=== PATIENT | female | born 1960 | race Hispanic/Latino ===

== ENCOUNTER 2020-08-15 10:29 | Outpatient (CLI) | payer OTHER, SELFPAY ==
--- NOTE | ~2020-08-15 | CT_ITS ---
EXAMINATION: CT lung screening DATE: 08/15/2020 10:50 INDICATION: Personal history of nicotine dependence. TECHNIQUE: Computed tomography (CT) of the chest was performed without intravenous contrast. The dose -length product was 193.73 mGy-cm. Automated exposure control and iterative reconstruction technique were employed. COMPARISON: None FINDINGS: Heart size normal. No significant pleural or pericardial effusion. No thoracic lymphadenopa thy. The upper abdomen is unremarkable. There is mild emphysema. No endobronchial lesions. There is l ingular atelectasis. There are tiny 2 mm upper lobe nodules, likely benign. No osteolytic or osteobla stic lesions. IMPRESSION: 1. Lung-RADS category 2: Benign appearance or behavior. Continue annual screening with noncontrast lo w-dose chest CT in 12 months. Reviewed, dictated and finalized at location B. HER'S ASSISTANT IMPRESSION: 1. Lung-RADS category 2: Benign appearance or behavior. Continue annual screeni ng with noncontrast low-dose chest CT in 12 months.
== END 2020-08-15 10:30 | disposition home or self-care (01) ==
LOC: ANHIMG 10:33
PROVIDERS: PCP Physician Assistant; Visit Provider Physician Assistant
DX: Z87.891 Personal history of nicotine dependence (principal)
CPT/HCPCS: G0297

== ENCOUNTER 2021-08-16 07:59 | Day surgery (SDC) | payer OTHER, SELFPAY ==
[2021-08-16] VITALS (13 sets, daily range): BP systolic 122–161; BP diastolic 67–98; PULSE 72–89; RESP 16–30; TEMP 36.4–36.5; O2SAT 95–99
--- NOTE | ~2021-08-16 | CT_ITS ---
EXAMINATION: CT abdomen pelvis w con DATE: 08/16/2021 10:19 INDICATION: Right lower quadrant pain TECHNIQUE: Computed tomography (CT) of the abdomen and pelvis was performed with 100 cc Omnipaque 350 intravenous contrast. The dose-length product was 1149.08 mGy-cm. Automated exposure control and ite rative reconstruction technique were employed. COMPARISON: CT dated 09/25/2014. FINDINGS: Lung bases are unremarkable. Heart size normal. No significant pleural or pericardial effus ion. No significant vascular abnormality. Fatty infiltration of the liver. The spleen, pancreas, adrenal glands and kidneys are unremarkable. T here is a thickened enhancing appendix with surrounding phlegmonous change, compatible with acute derek endicitis. Small amount of free fluid in the pelvis. Nonobstructive bowel gas pattern. No free air. N o acute osseous abnormality. IMPRESSION: 1. Acute uncomplicated appendicitis. Reviewed, dictated and finalized at location A. ORK SECURITY ADMINISTRATOR
[2021-08-16 08:45] LABS: Basophils Absolute Auto 0.1 K/mm3 (0.0-0.1); Basophils Percent Auto 0.5 % (0.2-1.2); Eosinophils Absolute Auto 0.2 K/mm3 (0-0.3); Eosinophils Percent Auto 1.6 % (0-4.4); Hematocrit 39.6 % (37.0-47.0); Hemoglobin 13.3 g/dL (12.0-15.0); Immature Granulocyte Absolute 0.03 K/mm3 (0.00-0.031); Immature Granulocyte Percent A 0.3 % (0-0.5); Lymphocytes Absolute Auto 2.27 K/mm3 (0.9-3.2); Lymphocytes Percent Auto 22.6 % (18.3-44.2); Mean Corpuscular HGB Conc 33.6 g/dl (32-36); Mean Corpuscular Hemoglobin 29.6 pg (26-34); Mean Corpuscular Volume 88.2 fl (80-100); Mean Platelet Volume 10.1 fl (7.4-10.4); Monocytes Absolute Auto 0.5 K/mm3 (0.1-0.6); Monocytes Percent Auto 5.4 % (2.6-8.5); Neutrophils Percent Auto 69.6 % (45.5-73.1); Platelet Count Result 283 k/mm3 (150-375); Red Blood Count 4.49 M/mm3 (4.2-5.4); Red Cell Distribution Width 13.5 % (11.5-14.5)
[2021-08-16 09:00] LABS: Alanine Aminotransferase 23 U/L (4-35); Albumin Level 4.4 g/dL (3.5-5.1); Alkaline Phosphatase 68 U/L (38-126); Anion Gap 10 mmol/L (8-16); Aspartate Amino Transferase 25 U/L (14-36); Bilirubin,Total 0.5 mg/dL (0.2-1.3); Blood Urea Nitrogen 14 mg/dL (7-17); Calcium 8.6 mg/dL (8.4-10.2); Carbon Dioxide 22 mmol/L (22-30); Chloride 103 mmol/L (98-107); Estimated CRCL calculation 95 ml/min; Estimated Glomerular Filt Rate > 60; Glucose 120 mg/dL (65-110); Lipase 46 U/L (23-300); Potassium 4.1 mmol/L (3.4-5.0); Sodium 135 mmol/L (137-145)
[2021-08-16 09:11] LABS: Add Urine Microscopic? YES; Appearance Urine Cloudy (Clear); Bilirubin Urine Negative (Negative); Blood Urine Negative (Negative); Color Urine Yellow (Yellow); Glucose Urine UA Negative (Negative); Ketones Urine Negative (Negative); Leukocyte Esterase Ur Negative LEU/UL (Negative); Mucus Urine Rare /lpf; Nitrate Urine Negative (Negative); Protein Urine Negative (Negative); Squamous Epithelial Cell Urine Many /hpf (Few); Urobilinogen Urine Negative mg/dL (<2.0); WBC Urine 0-3 /hpf
[2021-08-16] MEDS: SODIUM CHLORIDE 0.9% IV 1,000 ML 999 ML IV CONT (10:01)
--- NOTE | 2021-08-16 10:02 | PC.NURSE ---
Pt states she had her fallobian tubes removed
--- NOTE | 2021-08-16 12:04 | ED.ABDPAIN ---
HPI - Abdominal Pain General Chief Complaint: Abdominal Pain Stated Complaint: rlq abd pain Time Seen by Provider: 08/16/21 09:37 Source: patient and RN notes reviewed Mode of arrival: ambulatory Limitations: no limitations History of Present Illness HPI narrative: Patient presents with right lower quadrant pain started last night. Constant, no radiation, associated with nausea. Patient denies any fever, chills, vomiting. Patient is not vaccinated for COVID-19, no history of abdominal surgery. Patient smokes, does not drink or uses drugs, no blood thinner. Last meal was last night at 8 PM Related Data Allergies Allergy/AdvReac Type Severity Reaction Status Date / Time No Known Allergies Allergy Verified 11/17/18 19:30 Review of Systems Review of Systems: CONSTITUTIONAL: Denies fever, chills, or sweats. EYES: Denies visual changes, redness, or discharge. ENT: Denies rhinorrhea, congestion, sore throat, or otalgia. CARDIOVASCULAR: Denies chest pain, palpitations, or edema. RESPIRATORY: Denies cough or dyspnea. GASTROINTESTINAL: Denies abdominal pain, nausea, vomiting, or diarrhea. GENITOURINARY: Denies dysuria or hematuria. SKIN: Denies rash or itching. MUSCULOSKELETAL: Denies back pain, joint pain, or myalgia. NEUROLOGIC: Denies headache, numbness, or weakness. PSYCHIATRIC: Denies anxiety or depression. Exam Narrative: General appearance: Well-developed, well-nourished Skin: Normal color Head: Normocephalic, nontraumatic Eyes: Clear conjunctiva ENT: Oropharynx normal, ears normal, nose normal Neck: Supple, nontender Chest and respiratory: Airway patent, no respiratory distress, no accessory muscle use Heart: Regular rate/rhythm Abdomen: Soft, moderate tenderness right lower quadrant, positive guarding and slight rebound, quiet bowel sounds Vascular: Normal peripheral pulses, normal capillary refill. 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, no gross motor deficit Course Course Emergency Course: Stable Consultations Consultation #1: DR BENSON Date: 08/16/21 Time: 12:17 Vital Signs Vital signs: Vital Signs Temperature 36.5 C 08/16/21 08:07 Pulse Rate 89 08/16/21 08:07 Respiratory Rate 18 08/16/21 08:07 Blood Pressure 122/91 H 08/16/21 08:07 Pulse Oximetry 98 08/16/21 08:07 Temperature 36.5 C 08/16/21 08:07 Pulse Rate 72 08/16/21 10:59 Respiratory Rate 18 08/16/21 10:59 Blood Pressure 133/77 08/16/21 10:59 Pulse Oximetry 99 08/16/21 10:59 MDM - Abdominal Pain MDM Narrative Medical decision making narrative: Patient presents with right lower quadrant pain. Differential diagnosis as below. Labs, CT abdomen pelvis with IV contrast, IV fluid, IV morphine and Zofran ordered Differential Diagnosis Differential diagnosis: Likely abdominal pain, acute appendicitis, calculus of kidney, constipation and diverticulitis Lab Data Result diagrams: 08/16/21 08:34 08/16/21 08:34 Labs: Lab Results 08/16/21 08/16/21 08/16/21 Range/Units 08:34 08:34 08:50 WBC 10.0 (4.5-10.0) K/mm3 RBC 4.49 (4.2-5.4) M/mm3 Hgb 13.3 (12.0-15.0) g/dL Hct 39.6 (37.0-47.0) % MCV 88.2 (80-100) fl MCH 29.6 (26-34) pg MCHC 33.6 (32-36) g/dl RDW 13.5 (11.5-14.5) % Plt Count 283 (150-375) k/mm3 MPV 10.1 (7.4-10.4) fl Immature Gran % (Auto) 0.3 (0-0.5) % Neut % (Auto) 69.6 (45.5-73.1) % Lymph % (Auto) 22.6 (18.3-44.2) % [place] % (Auto) 5.4 (2.6-8.5) % Eos % (Auto) 1.6 (0-4.4) % Baso % (Auto) 0.5 (0.2-1.2) % Lymph # (Auto) 2.27 (0.9-3.2) K/mm3 Mon
[2021-08-16] MEDS: ONDANSETRON INJ 4 MG/2 ML VIAL IV PUSH (12:15)
[2021-08-16] MEDS: MORPHINE SULFATE (*CRX) 4 MG/ML INJ IV PUSH (12:15)
--- NOTE | 2021-08-16 14:01 | WPDANESEPPF ---
Anes - Initial Pre Proc Eval Procedure: Operation Date: 08/16/21 15:30 Proposed Procedures p Laparoscopic Appendectomy - Power Charles MD Date/Time: 08/16/21 14:01 Pre Op Diagnosis: rlq abd pain Patient Data Age: 60 Gender: F Height: 1.63 m Weight: 90.7 kg Last Vital Signs Temp 36.4 C L 08/16/21 13:13 Pulse 83 08/16/21 13:13 Resp 16 08/16/21 13:13 BP 154/91 H 08/16/21 13:13 Pulse Ox 98 08/16/21 13:13 Allergies Allergy/AdvReac Type Severity Reaction Status Date / Time No Known Allergies Allergy Verified 08/16/21 13:38 Home Medications Medication Instructions Recorded Confirmed Type cetirizine 10 mg PO DAILY 08/16/21 08/16/21 History conj estrog-medroxyprogest francia 0.625 - 2.5 tablet PO DAILY 08/16/21 08/16/21 History [Prempro] sertraline 100 mg PO DAILY 08/16/21 08/16/21 History Laboratory Tests 08/16/21 08/16/21 08/16/21 08:34 08:34 08:50 WBC 10.0 K/mm3 K/mm3 (4.5-10.0) RBC 4.49 M/mm3 M/mm3 (4.2-5.4) Hgb 13.3 g/dL g/dL (12.0-15.0) Hct 39.6 % % (37.0-47.0) MCV 88.2 fl fl (80-100) MCH 29.6 pg pg (26-34) MCHC 33.6 g/dl g/dl (32-36) RDW 13.5 % % (11.5-14.5) Plt Count 283 k/mm3 k/mm3 (150-375) MPV 10.1 fl fl (7.4-10.4) Immature Gran % (Auto) 0.3 % % (0-0.5) Neut % (Auto) 69.6 % % (45.5-73.1) Lymph % (Auto) 22.6 % % (18.3-44.2) [place] % (Auto) 5.4 % % (2.6-8.5) Eos % (Auto) 1.6 % % (0-4.4) Baso % (Auto) 0.5 % % (0.2-1.2) Lymph # (Auto) 2.27 K/mm3 K/mm3 (0.9-3.2) [place] # (Auto) 0.5 K/mm3 K/mm3 (0.1-0.6) Eos # (Auto) 0.2 K/mm3 K/mm3 (0-0.3) Baso # (Auto) 0.1 K/mm3 K/mm3 (0.0-0.1) Abs Immat Gran (auto) 0.03 K/mm3 K/mm3 (0.00-0.031) Absolute Neuts (auto) 7.0 K/mm3 H K/mm3 (1.3-6.7) Absolute Nucleated RBC 0.0 K/mm3 K/mm3 (0.0-0.012) Nucleated RBC % 0.0 % % (0.0-0.2) Sodium 135 mmol/L L mmol/L (137-145) Potassium 4.1 mmol/L mmol/L (3.4-5.0) Chloride 103 mmol/L mmol/L (98-107) Carbon Dioxide 22 mmol/L mmol/L (22-30) Anion Gap 10 mmol/L mmol/L (8-16) BUN 14 mg/dL mg/dL (7-17) Creatinine 0.60 mg/dL L mg/dL (0.7-1.0) Estim Creat Clear Calc 95 ml/min ml/min Estimated GFR > 60 (59 - ) Glucose 120 mg/dL H mg/dL (65-110) Calcium 8.6 mg/dL mg/dL (8.4-10.2) Total Bilirubin 0.5 mg/dL mg/dL (0.2-1.3) AST 25 U/L U/L (14-36) ALT 23 U/L U/L (4-35) Alkaline Phosphatase 68 U/L U/L (38-126) Total Protein 7.0 g/dL g/dL (6.3-8.2) Albumin 4.4 g/dL g/dL (3.5-5.1) Lipase 46 U/L U/L (23-300) Urine Color Yellow (Yellow) Urine Appearance Cloudy H (Clear) Urine pH 7.0 (5.0-9.0) Ur Specific [place] 1.020 (1.001-1.035) Urine Protein Negative mg/dL mg/dL (Negative) Urine Glucose (UA) Negative mg/dL mg/dL (Negative) Urine Ketones Negative mg/dL mg/dL (Negative) Ur Blood (Man) Negative (Negative) Urine Nitrate Negative (Negative) Urine Bilirubin Negative (Negative) Urine Urobilinogen Negative mg/dL mg/dL (<2.0) Leukocyte Esterase Rfl Negative AJITH/UL AJITH/UL (Negative) Urine RBC 3-5 /hpf H /hpf (0-2) Urine WBC 0-3 /hpf /hpf Ur Squamous Epith Cells Many /hpf H /hpf (Few) Urine Mucus Rare /lpf /lpf Patient hx anesthesia problems: none Family hx anesthesia problems: none Results Review: All pre-operative results and documents have been reviewed as part of the pre-operative evaluation. PMFSH Past Medical History Medical History (Up
--- NOTE | 2021-08-16 15:44 | WPDHPUPDATE1 ---
History and Physical Update Update Date/Time: 08/16/21 15:44 History and Physical has been reviewed, including an updated exam of the patient. There are NO changes in the patient's condition. Risks, benefits, and alternatives have been discussed and questions answered. Patient agrees to proceed with procedure.
--- NOTE | 2021-08-16 15:44 | PM.SD2 ---
Same Day Admit/Disch: HPI History of Present Illness Chief complaint: Right lower quadrant abdominal pain Narrative: Yadira Grijalva is a 60 year old female who began having abdominal pain last night. Over time this pain which was in the mid abdomen and upper abdomen gradually moved to the right lower quadrant. It became more severe as the night went on. She had no nausea or vomiting. She had no fever. She has not had any diarrhea. The pain was quite severe and she decided to come to the emergency room about 7:00 a.m. this morning. In the emergency room she was noted to have right lower quadrant tenderness with guarding. [place] [id number]. She was afebrile. Her CT however showed early acute appendicitis. Patient is taken to surgery now for laparoscopic appendectomy. She has generally healthy although she does smoke a pack a cigarettes per day. [facility] Past Medical History Medical History WHITING (nonalcoholic steatohepatitis) 3 years ago - resolved Social History Social History Smoking packs per day: 1 Smoking cigarettes per day: 20.0 Years smoked: 40 Smoking pack-years: 40.00 Smoking status: Current every day smoker Same Day Admit/Disch: Med Pre-admit Medications Home Medications Medication Instructions Recorded Confirmed Type Prempro 0.625 - 2.5 tablet PO DAILY 08/16/21 08/16/21 History albuterol sulfate 1 inh INHALATION PRN PRN 08/16/21 08/16/21 History apple cider vinegar 300 mg PO DAILY 08/16/21 08/16/21 History calcium carbonate-vitamin D3 1 tablet PO DAILY 08/16/21 08/16/21 History cetirizine 10 mg PO DAILY 08/16/21 08/16/21 History diclofenac sodium 75 mg PO BID 08/16/21 08/16/21 History gabapentin 300 mg PO TID 08/16/21 08/16/21 History hydrocodone-acetaminophen 1 - 2 tablet PO Q6H PRN #10 tablet 08/16/21 Rx imipramine HCl 25 mg PO BID 08/16/21 08/16/21 History multivitamin with folic acid 1 tablet PO DAILY 08/16/21 08/16/21 History [Tab-A-Awais] sertraline 100 mg PO DAILY 08/16/21 08/16/21 History Exam Const: General: comfortable, no acute distress, alert and awake HENMT: Head: normocephalic and atraumatic Mouth: Yes Normal oral and palatal mucosa present Eyes: Conjunctivae: conjunctivae normal Pupils: Equal, round and reactive pupils present EOM: EOMs intact bilaterally Neck: Neck: normal visual inspection, no lymphadenopathy and nontender Resp: Effort & Inspection: normal respiratory effort Auscultation: clear to auscultation bilaterally Cardio: Rate: regular rate Rhythm: regular rhythm Heart sounds: no gallops, no murmurs and no rubs GI: Inspection: non-distended, obesity and scar (Periumbilical) GI Palp: Yes Soft to palpation, Yes Tenderness to palpation present (GI) (Right lower quadrant mostly), Yes Guarding due to palpation present (GI), No Hepatomegaly present and No Splenomegaly present Skin: Lesions: no lesions Rashes: no rashes Neuro: General: no focal motor deficits and CN's II-XI intact bilaterally Cranial nerves: Yes Equal, round and reactive pupils present, Yes Bilaterally intact EOM present, Yes facial symmetry and Yes Midline tongue present Speech: normal speech Motor exam (neuro): 5/5 motor strength present throughout and Motor abnormalities not present Extrem: General: no clubbing, cyanosis or edema and edema Psych: Affect: normal affect Thought process: Normal thought process present Insight: Good insight present (Psych) DS: Data Data Completed and Pending Labs on day of discharge: Labs from last 24 hours 08/16/21 08/16/21 08/16/21 08:50 08:34 08:34 WBC 10.0 RBC 4.49 Hgb 13.3 Hct 39.6 MCV 88.2 MCH 29.6 MCHC 33.6 RDW 13.5 Plt Count 283 MPV 10.1 Immature Gran % (Auto) 0.3 Neut % (Auto) 69.6 Lymph % (Auto) 22.6 [place] % (Auto) 5.4 Eos % (Auto) 1.6 Baso % (Auto) 0.5 Ly
--- NOTE | 2021-08-16 15:53 | P.OP_ITS ---
Procedure Note - Detailed Date of Procedure 08/16/21 Pre-op Diagnosis Acute appendicitis Post-op Diagnosis same Procedure Performed Laparoscopic appendectomy Surgeon Power Charles MD International Sales Manager Saad AWAN Anesthesia general and local (0.5% [place]aine) Indications Patient is a 60-year-old woman with mid abdominal pain that moved to the right lower quadrant. She has rebound guarding and CT suggests early acute appendicitis. She is taken to surgery now for laparoscopic appendectomy Findings Acute non perforated appendicitis Description of Procedure Patient was taken to surgery and induced into general anesthesia. The abdomen is prepped and draped. Trocars were placed in usual fashion using 0.5% [place]aine as well as applied Medical optical trocars. A 5 mm camera was used. The patient was placed in Trendelenburg with the right-side elevated. The appendix was found after some dissection. It was dissected free from inflammatory adhesions and then elevated anteriorly. Dissection was then carried out in the mesoappendix. The appendiceal artery was thoroughly cauterized and divided. We skeletonized the appendix at its base. The appendix was then ligated at its base with a Vicryl endoloop. We amputated the appendix just above the ligature. The mucosa of the appendiceal stump was cauterized. The appendix was placed immediately in an Endo-Catch bag retrieved through the 10 11 left lower quadrant trocar site. We replaced the left lower quadrant trocar then reviewed the areas of dissection and the appendiceal stump. We suctioned away any blood or other debris. All looked quite good. We evacuated CO2 and removed the trocar sleeves. Skin wounds were closed with subcuticular running 4-0 Monocryl skin suture. The wounds were dressed with Exofin surgical adhesive. Patient was awakened and taken to recovery in good condition. Sponge and needle counts were correct x2. Estimated Blood Loss -5 Drains No Packing No Pathology yes (Appendix) Complications No immediate complications Condition stable Disposition PACU
[2021-08-16] MEDS: BUPIVACAINE HCL 0.5% PF 30 ML VIAL INFILTRATE (16:16)
[2021-08-16] MEDS: LACTATED RINGERS 1,000 ML 30 ML IV CONT (16:32)
[2021-08-16] MEDS: fentaNYL CITRATE INJ (*CRX) 100 MCG/2 ML VIAL 25 MCG IV PUSH ×6 (16:53→17:19)
[2021-08-16] MEDS: oxyCODONE HCL (*CRX) 5 MG TAB IR PO (17:56)
== END 2021-08-16 18:34 | disposition home or self-care (01) ==
LOC: ANHED 12:47 → ANHSURGERY 14:12
PROVIDERS: Emergency Provider Emergency Medicine; PCP Physician Assistant; Visit Provider Surgery
PROC: 0DTJ4ZZ Resection of Appendix, Percutaneous Endoscopic Approach (ICD-10-PCS; CPT 44970; principal; 2021-08-16 15:30)
DX: K35.30 Acute appendicitis with localized peritonitis, without perforation or gangrene (principal); K38.2 Diverticulum of appendix; F17.210 Nicotine dependence, cigarettes, uncomplicated; E66.9 Obesity, unspecified; Z68.34 Body mass index [BMI] 34.0-34.9, adult
CPT/HCPCS: 44970; 36415; 74177; 80053; 81001; 83690; 85025; 88304; 96361; 96365; 96375; 99285; A9270; J0330; J1100; J2270; J2405; J2543; J2704; J3010; J7030; J7120; Q9967

== ENCOUNTER 2023-05-26 09:34 | Outpatient (CLI) | payer OTHER, SELFPAY | END 2023-05-26 09:35 | disposition home or self-care (01) | LOC: ANHAUDIO 09:35 | PROVIDERS: PCP Physician Assistant; Visit Provider Otolaryngology | DX: H90.3 Sensorineural hearing loss, bilateral (principal); H93.19 Tinnitus, unspecified ear | CPT/HCPCS: 92557; 92567 ==

== ENCOUNTER 2024-12-13 11:04 | Emergency (ER) | payer OTHER, SELFPAY ==
--- NOTE | ~2024-12-13 | CT_ITS ---
Clinical Indication: Chest pain, tachycardia CT Scan of the Chest with Contrast: Technique: Contiguous sections were acquired throughout the chest after intravenous administration of 100 cc of Omnipaque 350. Dose reduction technique was used on this scan by utilizing automated expos ure control and iterative reconstruction technique. The dose-length product (DLP) was 504.01 mGy-cm. Findings: There is no evidence of any significant mediastinal, hilar or axillary lymphadenopathy. There is no f illing defect in the pulmonary arterial tree to suggest pulmonary embolus. There is no evidence of ao rtic dissection or aneurysm. There is no evidence of pleural or pericardial effusion. Focal area of consolidation present in the posterior right upper lobe, compatible with pneumonia. The re is additional mild patchy air space opacities in the more inferolateral right upper lobe. Left say g clear aside from focal atelectasis in the medial left upper lobe. Images through the upper abdomen reveal no abnormalities. Impression: No evidence of pulmonary embolus, aortic dissection, or aortic aneurysm. Right upper lobe pneumonia, as detailed above. Reviewed, dictated and finalized at location . Impression: No evidence of pulmonary embolus, aortic dissection, or aortic aneurysm. Right upper lobe pneumonia, as detailed above.
--- NOTE | ~2024-12-13 | XR_ITS ---
Clinical Indication: Chest pain PA and lateral views of the chest: Comparison: 12/06/2011 Findings: The lungs are clear, without evidence of focal consolidation or pleural effusion. Possible COPD. Cardiomediastinal silhouette is within normal limits. Bones and soft tissues are unremarkable. Impression: Clear lungs. Possible COPD. Reviewed, dictated and finalized at location . Impression: Clear lungs. Possible COPD.
[2024-12-13 11:05] VITALS: BP 137/99; PULSE 120; RESP 20; TEMP 36.3; O2SAT 97
[2024-12-13 11:10] VITALS: BP 137/99; PULSE 120; RESP 18; TEMP 36.3; O2SAT 97
--- NOTE | 2024-12-13 11:11 | ECG_ITS ---
Test Date: 2024-12-13 11:15:29 Measurements Intervals [place] Rate: 110 P: 62 AK: 130 QRS: 52 QRSD: 89 T: 54 QT: 302 QTc: 409 Interpretive Statements SINUS TACHYCARDIA MINIMAL Q WAVES- INFERIOR LEADS BORDERLINE ST-T WAVE ABNORMALITY- ANTEROLAT/INF LEADS BASELINE ARTIFACT- V4-V6 ABNORMAL ECG No previous ECG available for comparison Electronically Signed On 12-13-2024 12:29:46 CDT by Mayo Brice D.O.
[2024-12-13 11:44] LABS: Basophils Percent Auto 0.2 % (0.2-1.2); Eosinophils Absolute Auto 0.1 K/mm3 (0-0.3); Eosinophils Percent Auto 0.4 % (0-4.4); Hematocrit 42.9 % (37.0-47.0); Hemoglobin 13.9 g/dL (12.0-15.0); Immature Granulocyte Absolute 0.08 K/mm3 (0.00-0.031); Immature Granulocyte Percent A 0.4 % (0-0.5); Lymphocytes Absolute Auto 1.32 K/mm3 (0.9-3.2); Lymphocytes Percent Auto 7.3 % (18.3-44.2); Mean Corpuscular HGB Conc 32.4 g/dl (32-36); Mean Corpuscular Hemoglobin 28.8 pg (26-34); Mean Corpuscular Volume 88.8 fl (80-100); Mean Platelet Volume 9.9 fl (7.4-10.4); Monocytes Absolute Auto 0.9 K/mm3 (0.1-0.6); Monocytes Percent Auto 4.7 % (2.6-8.5); Neutrophils Absolute Auto 15.6 K/mm3 (1.3-6.7); Platelet Count Result 287 k/mm3 (150-375); Red Blood Count 4.83 M/mm3 (4.2-5.4); Red Cell Distribution Width 15.7 % (11.5-14.5)
--- NOTE | 2024-12-13 11:44 | PC.NURSE ---
attempted to take patients blood pressure multiple times, educating that if the patient sits still the blood pressure cuff won't continue to increase in tightness. patient yelling and ripping the blood pressure cuff off every time stating I am already in pain I can't take that pain, that's going to make me have a heart attack . educated the patient that we need to monitor her blood pressure and will come back after a break for her.
[2024-12-13] MEDS: ASPIRIN 81 MG CHEWABLE TABLET 324 MG PO (11:49)
[2024-12-13 11:53] LABS: Alanine Aminotransferase 25 U/L (6-35); Albumin Level 4.7 g/dL (3.5-5.1); Alkaline Phosphatase 94 U/L (38-126); Anion Gap 13 mmol/L (4-12); Aspartate Amino Transferase 23 U/L (14-36); Bilirubin,Total 0.3 mg/dL (0.2-1.3); Blood Urea Nitrogen 16 mg/dL (7-17); Calcium 9.7 mg/dL (8.4-10.2); Carbon Dioxide 22 mmol/L (22-30); Chloride 103 mmol/L (98-107); Estimated CRCL calculation 74 ml/min; Estimated Glomerular Filt Rate > 60; Glucose 152 mg/dL (65-110); Lipase 76 U/L (23-300); Sodium 138 mmol/L (137-145)
[2024-12-13 11:57] LABS: Partial Thromboplastin Time 27.6 Seconds (22.3-36.8); Prothrombin Time 13.2 Seconds (11.1-14.7)
[2024-12-13 12:05] LABS: Troponin I < 0.012 ng/mL (0.000-0.034)
--- NOTE | 2024-12-13 12:06 | ED_ITS ---
HPI - General Adult General Chief complaint: Chest Pain Stated complaint: chest pain Time Seen by Provider: 12/13/24 11:28 History of Present Illness HPI narrative: 64-year-old female present to the emergency department for evaluation for left- sided chest pain that is sharp and worsened with deep inspiration. Patient states symptoms started this morning. Patient does have a history of COPD does continue to smoke. Patient denies any cardiac history. Patient is unsure if she has ever had a stress test patient denies ever having a Angiocath. Patient denies any prior history of PE or DVT. Patient does have history of hypertension and anxiety Related Data Home Medications ?Medication ?Instructions ?Recorded ?Confirmed ?Last Taken ?Type albuterol sulfate 90 mcg/actuation 1 inh inhalation PRN PRN Shortness 08/16/21 05/25/23 Unknown History aerosol inhaler Of Breath apple cider vinegar 300 mg tablet 300 mg PO DAILY 08/16/21 05/25/23 Unknown History calcium 600 mg (as 1 tablet PO DAILY 08/16/21 05/25/23 Unknown History carbonate)-vitamin D3 10 mcg (400 unit) tablet diclofenac sodium 75 mg 75 mg PO BID 08/16/21 05/25/23 Unknown History tablet,delayed release gabapentin 300 mg tablet 300 mg PO TID 08/16/21 05/25/23 Unknown History imipramine HCl 25 mg tablet 25 mg PO BID 08/16/21 05/25/23 Unknown History multivitamin with folic acid 400 1 tablet PO DAILY 08/16/21 05/25/23 Unknown History mcg tablet (Tab-A-Awais) sertraline 100 mg tablet 100 mg PO DAILY 08/16/21 05/25/23 Unknown History lisinopril 10 mg tablet 10 mg PO DAILY 02/23/23 05/25/23 Unknown History Allergies Allergy/AdvReac Type Severity Reaction Status Date / Time No Known Allergies Allergy Verified 12/13/24 11:04 Review of Systems 2 Review of Systems: All systems reviewed & are unremarkable except as noted in HPI and below PMFSH Past Medical History Medical History WHITING (nonalcoholic steatohepatitis) 3 years ago - resolved Family History Family History Father Alcoholism Mother Cancer Diabetes mellitus Hypertension Depression Heart disease Cerebrovascular accident Social History Social History Social History: Caffeine-daily Smoking packs per day: 1 Smoking cigarettes per day: 20.0 Years smoked: 40 Smoking pack-years: 40.00 Smoking status: Current every day smoker Alcohol intake: never Substance use: never Substance use type: does not use Lack of Transportation: No Lack of Food: Never True Current Housing: I Have Housing Concerned About Future Housing: No Difficulty Paying Gas/Electric Bills: YES Difficulty Paying for Meds: No Currently Unemployed: No Education: High School Diploma/GED Difficulty w/ Childcare or Family Care: No Exam 2 Narrative: APPEARANCE: Uncomfortable appearing HEAD: normocephalic, atraumatic. EYES: PERRLA/EOMI, conjunctivae clear. NOSE: Normal no drainage EARS:TMS clear with good light reflex. THROAT: Pharynx clear, no exudate. NECK: Supple. No adenopathy, no masses. RESPIRATORY: Airway patent, respirations nonlabored. Clear to auscultation bilaterally, no rales, rhonchi, wheezing. CARDIOVASCULAR: Regular rate and rhythm without murmurs rubs or gallops. ABDOMINAL: Soft, nontender, nondistended, normal bowel sounds MUSCULOSKELETAL: Reproducible left-sided chest wall tenderness to palpation NEURO: Alert. Cranial nerves II through XII intact. Good gait. Good coordination SKIN: Warm, dry. Normal Color Course Vital Signs Vital signs: Vital Signs Temperature 97.4 F L 12/13/24 11:05 Pulse Rate 120 H 12/13/24 11:05 Respiratory Rate 20 12/13/24 11:05 Blood Pressure 137/99 H 12/13/24 11:05 Pulse Oximetry 97 12/13/24 11:05 Oxygen Delivery Room Air 12/13/24 11:05 Temperature 97.4 F L 12/13/24 11:10 Pulse Rate 89 12/13/24 15:58 Respiratory Rate 18 12/13/24 15:58 Blood Pressure 128/72 12/13/24 15:58 Pulse Oximetry 96 12/13/24 15:58 Oxygen Delivery Room Air 12/13/24 12:19 Medical Decision Making MDM Narrative Medical decision making narrative: 64-year-old female presents emergency department for evaluation for left-sided chest pain. Patient had significant improvement of her symptoms with Toradol. Patient does have a white count of 18 a hemoglobin of 13.9. INR is 1.0. Patient had negative serial troponins. CTA showed no evidence pulmonary embolism was concerning for right-sided pneumonia. Patient was started on Augmentin and azithromycin. On re-evaluation patient states he does feel significantly improved. Patient was updated the results of her workup. Patient was comfortable plan for discharge and close follow-up Differential Diagnosis Differential Diagnosis: COVID, RSV, influenza, ACS Vital Signs Vital Signs: Vital Signs Temperature 97.4 F L 12/13/24 11:05 Pulse Rate 120 H 12/13/24 11:05 Respiratory Rate 20 12/13/24 11:05 Blood Pressure 137/99 H 12/13/24 11:05 Pulse Oximetry 97 12/13/24 11:05 Oxygen Delivery Room Air 12/13/24 11:05 Temperature 97.4 F L 12/13/24 11:10 Pulse Rate 89 12/13/24 15:58 Respiratory Rate 18 12/13/24 15:58 Blood Pressure 128/72 12/13/24 15:58 Pulse Oximetry 96 12/13/24 15:58 Oxygen Delivery Room Air 12/13/24 12:19 Lab Data Lab results reviewed: Yes I reviewed the patient's lab results. 12/13/24 11:31 12/13/24 11:31 Labs: Lab Results 12/13/24 12/13/24 Range/Units 11:31 14:29 WBC 18.0 H (4.5-10.0) K/mm3 RBC 4.83 (4.2-5.4) M/mm3 Hgb 13.9 (12.0-15.0) g/dL Hct 42.9 (37.0-47.0) % MCV 88.8 (80-100) fl MCH 28.8 (26-34) pg MCHC 32.4 (32-36) g/dl RDW 15.7 H (11.5-14.5) % Plt Count 287 (150-375) k/mm3 MPV 9.9 (7.4-10.4) fl Immature Gran % (Auto) 0.4 (0-0.5) % Neut % (Auto) 87.0 H (45.5-73.1) % Lymph % (Auto) 7.3 L (18.3-44.2) % Cannon % (Auto) 4.7 (2.6-8.5) % Eos % (Auto) 0.4 (0-4.4) % Baso % (Auto) 0.2 (0.2-1.2) % Lymph # (Auto) 1.32 (0.9-3.2) K/mm3 Cannon # (Auto) 0.9 H (0.1-0.6) K/mm3 Eos # (Auto) 0.1 (0-0.3) K/mm3 Baso # (Auto) 0.0 (0.0-0.1) K/mm3 Abs Immat Gran (auto) 0.08 H (0.00-0.031) K/mm3 Absolute Neuts (auto) 15.6 H (1.3-6.7) K/mm3 Absolute Nucleated RBC 0.000 (0.0-0.012) K/mm3 Nucleated RBC % 0.0 (0.0-0.2) % PT 13.2 (11.1-14.7) Seconds INR 1.0 APTT 27.6 (22.3-36.8) Seconds Sodium 138 (137-145) mmol/L Potassium 4.0 (3.4-5.0) mmol/L Chloride 103 (98-107) mmol/L Carbon Dioxide 22 (22-30) mmol/L Anion Gap 13 H (4-12) mmol/L BUN 16 (7-17) mg/dL Creatinine 0.73 (0.7-1.0) mg/dL Estim Creat Clear Calc 74 ml/min Estimated GFR > 60 (59 - ) Glucose 152 H (65-110) mg/dL Calcium 9.7 (8.4-10.2) mg/dL Total Bilirubin 0.3 (0.2-1.3) mg/dL AST 23 (14-36) U/L ALT 25 (6-35) U/L Alkaline Phosphatase 94 (38-126) U/L Troponin I < 0.012 < 0.012 (0.000-0.034) ng/mL Total Protein 8.0 (6.3-8.2) g/dL Albumin 4.7 (3.5-5.1) g/dL Lipase 76 (23-300) U/L Imaging Data Radiologist's impression: Impressions Chest CTA 12/13/24 12:50 Impression: No evidence of pulmonary embolus, aortic dissection, or aortic aneurysm. Right upper lobe pneumonia, as detailed above. Chest X-Ray 12/13/24 12:52 Impression: Clear lungs. Possible COPD. Discharge Plan Discharge Clinical Impression: Chest pain, Pneumonia Patient Disposition: Home, Self-Care Condition: Stable Instructions: Antibiotic Form, Pleurisy (ED), Pneumonia (ED) Additional Instructions: Antibiotic as directed until completed. Ibuprofen as needed for pleuritic chest pain. Have close follow-up with her primary care physician for additional outpatient cardiac testing. If you have any worsening symptoms then please call or return to the emergency department. Patient Language: Italian Prescriptions: New azithromycin 250 mg tablet See Rx Instructions .ROUTE .COMPLEX Qty: 6 0RF Rx Instructions: For 250 mg dose pack: take 500 mg today (day 1), then 250 mg for 4 days (days 2-5) albuterol sulfate 90 mcg/actuation HFA aerosol inhaler 1 puff inhalation QID Qty: 6.7 0RF amoxicillin-pot clavulanate 875-125 mg tablet 1 tablet PO Q12H 7 Days Qty: 14 0RF No Action lisinopril 10 mg tablet 10 mg PO DAILY triamcinolone acetonide 0.1 % paste 1 applic dental BID Qty: 5 2RF Rx Instructions: use after food and/or drink and/or oral hygiene triamcinolone acetonide 0.1 % paste 1 applic dental BID Qty: 5 3RF Rx Instructions: use after food and/or drink and/or oral hygiene sertraline 100 mg Tablet 100 mg PO DAILY diclofenac sodium 75 mg Tablet,Delayed Release (Dr/Ec) 75 mg PO BID albuterol sulfate 90 mcg/actuation HFA aerosol inhaler 1 inh INHALATION PRN PRN (Reason: Shortness Of Breath) imipramine HCl 25 mg Tablet 25 mg PO BID gabapentin 300 mg Tablet 300 mg PO TID calcium carbonate-vitamin D3 600 mg-10 mcg (400 unit) tablet 1 tablet PO DAILY apple cider vinegar 300 mg Tablet 300 mg PO DAILY multivitamin with folic acid [Tab-A-Awais] 400 mcg Tablet 1 tablet PO DAILY methylprednisolone [Medrol] 4 mg tablet 4 mg PO BID Qty: 20 2RF Follow-up/Referrals: PHYSICIAN NOT ON STAFF,NONSTAFF [Non-Staff] - Quality HEART score for chest pain patients History: slightly suspicious ECG: normal Age: > 45 and < 65 years Risk factors: 1 or 2 risk factors Troponin: < or = to 1x normal limit Heart score: 2
[2024-12-13] MEDS: MORPHINE SULFATE (*CRX) 4 MG/ML INJ IV PUSH (12:12)
[2024-12-13] MEDS: KETOROLAC 30 MG/ML VIAL (*BKC) IV PUSH (12:12)
[2024-12-13 12:19] VITALS: O2SAT 96
--- OUTSIDE RECORDS SUMMARY | 2024-12-13 12:22 | XMS_ITS | Clinical Summary ---
Author Organization [facility] Address [address] [address] Care Team Providers Care Offensive Coordinator Name Role Phone Swapna Cortez PA-C Primary Care Provider + Source Comments [facility],non-owned Affiliates and Associated Physician Practices is amultiple site organization consisting of ambulatory clinics and hospital sitesin [place] and [place]. This disclosure is being madepursuant to the Care Everywhere program and may not contain all information available regarding this patient. Last updated 18.[facility] Allergies No known active allergies Medications * Be aware that medications may not be up to date on this document. Alwaysverify current medications with the patient. Medication Sig Dispensed Refills Start Date End Date Status hydrOXYzine hcl (ATARAX) 50 MG tabletIndications:An xiety Take 1 Tab by mouth 2 times daily as needed Reasons: Feeling Anxious 14 Tab 12/04/2016 Active gabapentin (NEURONTIN) 400 MG capsuleIndications:A lcohol Withdrawal Syndrome Take 1 Cap by mouth 3 times daily Reasons: Alcohol Withdrawal Syndrome 90 Cap 12/04/2016 Active FLUoxetine (PROZAC) 20 MG capsuleIndications:M ajor Depressive Disorder Take 1 Cap by mouth once daily Reasons: Major Depressive Disorder 30 Cap 12/04/2016 Active OLANZapine (ZYPREXA) 10 MG tabletIndications:Ma yisel Depressive Disorder Take 1 Tab by mouth at bedtime Reasons: Major Depressive Disorder 30 Tab 12/04/2016 Active potassium chloride (KLOR-CON M) 20 MEQ tabletIndications:Hy pokalemia Take 1 Tab by mouth daily with breakfast Reasons: Low Amount of Potassium in the Blood 30 Tab 12/04/2016 Active nicotine (NICODERM CQ) 14 MG/24HR patchIndications:Jan otine Dependence Apply 1 Patch to skin once daily Remove old patch before applying new patch. Reasons: Nicotine Addiction 14 Patch 12/04/2016 Active Active Problems Problem Noted Date Diagnosed Date MDD (major depressive disorder) 11/30/2016 Alcohol abuse 11/30/2016 Carpal tunnel syndrome 11/30/2016 Immunizations Name Administration Dates Next Due INFLUENZA VACCINE, QUADR. (F LUZONE; FLULAVAL; FLUARIX; AFLURIA QUADRIVALENT; 6MO+), 0.5 ML (IIV4) 12/01/2016 Social History Tobacco Use Types Packs/Day Years Used Date Smoking Tobacco: Every Day Cigarettes Tobacco Cessation:Ready to Q uit: No; Counseling Given: Yes Sex and Gender Information Value Date Recorded Sex Assigned at Not on file Gender Identity Not on file Sexual Orientation Not on file Last Filed Vital Signs Vital Sign Reading Time Taken Comments Blood Pressure 114/81 12/04/2016 7:24 AM CDT Pulse 97 12/04/2016 7:24 AM CDT Temperature 36.8 C (98.2 F) 12/04/2016 7:24 AM CDT Respiratory Rate 18 12/04/2016 7:24 AM CDT Oxygen Saturation 96% 12/04/2016 7:24 AM CDT Inhaled Oxygen Concentration - - Weight 71 kg (156 lb 8.4 oz) 11/30/2016 3:22 PM CDT Height 157.5 cm (5' 2 ) 11/30/2016 3:22 PM CDT Body Mass Index 28.63 11/30/2016 3:22 PM CDT Plan of Treatment Health Maintenance Due Date Last Done Comments COLOGUARD (AGES 45-75) - COL ON CA SCREENING 1962 COLON MONITORING 1962 COLONOSCOPY - COLON CA SCREENING 1962 CT COLONOGRAPHY - COLON CA SCREENING 1962 Colorectal Cancer Screening 1962 FIT - COLON CA SCREENING 1962 FLEX SIG - COLON CA SCREENING 1962 MAMMOGRAM 1962 PAP SMEAR 1962 HIV SCREENING 1977 HEPATITIS C SCREENING 11/04/1980 DTAP/TDAP/TD VACCINES (1 - Tdap) 1981 PNEUMOCOCCAL VACCINE 50+ (1 of 2 - PCV) 1981 PNEUMOCOCCAL VACCINE (1 of 2 - PCV) 1981 ZOSTER VACCINE (1 of 2) 2012 LIPID TESTING 12/03/2021 12/03/2016 COVID-19 VACCINE (1 - 2023-2 5 season) 2024 INFLUENZA VACCINE (#1) 2024 12/01/2016 DEPRESSION SCREENING 09/14/2024 Respiratory Syncytial Virus (RSV) Vaccine Pt: or over 60 yrs (1 - 1-dose 75+ series) 2037 HEPATITIS B VACCINE Aged Out No longe r eligible based on patient's age to complete this topic HIB VACCINE Aged Out No longer eligi ble based on patient's age to complete this topic HPV VACCINE Aged Out No longer eligi ble based on patient's age to complete this topic MENINGOCOCCAL (Group B) VACC INE SHARED DECISION-MAKING Aged Out No longer eligibl e based on patient's age to complete this topic MENINGOCOCCAL GROUPS A/C/Y/W VACCINE Aged Out No longer eligible b ased on patient's age to complete this topic Procedures Procedure Name Priority Date/Time Associated Diagnosis Comments LIPID PROFILE AM Draw 12/03/2016 5:27 AM CDT from Last 3 Months or Most Recently Relevant to Health Maintenance Results * (ABNORMAL) LIPID PROFILE (12/03/2016 5:27 AM CDT) Cholesterol 217(H) <200 mg/dL 12/03/2016 6:03 AM T [facility] Triglycerides 180(H) <150 mg/dL 12/03/2016 6:03 AM T [facility] HDL Cholesterol 20(L) >40 mg/dL 7 6:03 AM T [facility] Chol HDL Ratio 10.9(H) 1.0 - 6.0 12/03/2016 6:03 AM T [facility] LDL Calculated 161(H) 65 - 130 mg/dL 12/03/2016 6:03 AM T [facility] VLDL Calculated 36 10 - 40 mg/dL 12/03/2016 6:03 AM T [facility] Blood BLOOD SPECIMEN / Unknown Lab Venipuncture / Unknown 12/03/2016 5:27 AM CDT 12/03/2016 5:38 AM CDT Narrative [facility] - 12/03/2016 6:03 AM CDT Lipid Profile Comment: CHOLESTEROL LEVEL..................CLINICAL INTERPRETATION LESS THAN 200 MG/DL..............................DESIRABLE 200-239 MG/DL..............................BORDERLINE HIGH GREATER THAN 240 MG/DL................................HIGH LDL-CHOLESTEROL LEVEL..............CLINICAL INTERPRETATION LESS THAN 100 MG/DL................................OPTIMAL 100-129 MG/DL.................................NEAR OPTIMAL GREATER THAN 160 MG/DL...........................HIGH RISK HDL RISK LEVEL GREATER THEN 60 MG/DL............................DECREASED 40-60 MG/DL........................................AVERAGE LESS THAN 40 MG/DL...............................INCREASED TRIGLYCERIDE LEVEL..................CLINICAL INTERPRETATION LESS THAN 150 MG/DL...............................DESIRABLE 150-199 MG/DL...............................BORDERLINE HIGH 200-499 MG/DL..........................................HIGH GREATER THAN 500..................................VERY HIGH THE NATIONAL CHOLESTEROL EDUCATION PROGRAM HAS SET THE ABOVE GUIDELINES (REFERANCE VALUES) FOR CHOLESTEROL AND HDL. RISK ASSOCIATED WITH CHOLESTEROL/HDL RATIOS RISK....................MALE RATIO.............FEMALE RATIO 1/2 AVERAGE.................<3.4.......................<3.3 LOW RISK.................... 4.0 ...................... 3.8 AVERAGE..................... 5.0 ...................... 4.5 2X AVERAGE.................. 9.5 ...................... 7.0 3X AVERAGE...................>23........................>11 Debbie Potter MD LAB - CHEMISTRY [facility] Organization Address City/State/ZIP Co de Phone Number [facility] [address] [place] [address], [facility] from Last 3 Months or Most Recently Relevant to Health Maintenance Advance Directives * Full Code (Latest Code Status on File) Date Activated Date Inactivated Comments 11/30/2016 3:26 PM 12/04/2016 2:06 PM Care Teams Offensive Coordinator Relationship Specialty Start Date End Date Swapna Cortez PA-C [facility] [place] [address] PCP - General 08/22/21
--- OUTSIDE RECORDS SUMMARY | 2024-12-13 12:22 | XMS_ITS | Clinical Summary ---
Author Organization [facility] Address [address] [place] [address] Phone Care Team Providers Care Pre Sales Technical Engineer Name Role Phone Provider, None Primary Care Provider Unavailabl e Allergies No known active allergies Medications zolpidem (AMBIEN) 5 MG Tablet Take 5 mg by mouth nightly as needed. 0 8 Active Vilazodone HCl (VIIBRYD) 40 MG Tablet Take 40 mg by mouth daily. Active hydrOXYzine (VISTARIL) 50 MG CapsuleIndicat ions:STATES TAKES FOR INSOMNIA Take 50 mg by mouth 3 times daily. Active Glucosamine-Ch ondroitin (OSTEO BI-FLEX REGULAR STRENGTH PO)Indications :TAKES 2 TABLETS DAILY Take by mouth. A ctive Ibuprofen 200 MG Capsule Take by mouth. Acti ve Melatonin 10 MG Tablet Take 10 mg by mouth nightly as needed. Active gabapentin (NEURONTIN) 300 MG Capsule Take 300 mg by mouth 3 times daily. Active Naltrexone (VIVITROL IM)Indications :ONCE A MONTH, DUE 12/23 BUT WAITING UNTIL AFTER SURGERY INSTRUCTED BY DR VERAS by Intramuscular route. Active HYDROcodone-ac etaminophen (NORCO) 5-325 MG Tablet Take 1 Tab by mouth every 6 hours as needed for Pain. 20 Tab 8 Active escitalopram (LEXAPRO) 20 MG Tablet Take 20 mg by mouth daily. Active Multiple Vitamins-Ethyl Blender als (MULTIVITAMIN PO) Take by mouth daily. Active CALCIUM PO Take by mouth daily. Active HYDROcodone-ac etaminophen (NORCO) 5-325 MG Tablet Take 1 Tab by mouth every 6 hours as needed for Moderate pain (4-6) or more severe pain if patient requests. 20 Tab 8 Active Active Problems Problem Noted Date Diagnosed Date Carpal tunnel syndrome of left wrist 01/20/2018 Family History Medical History Relation Name Comments No Known Problems Father Cancer Mother Congestive Heart Failure Mother Diabetes Mother Hypertension Mother Renal Failure Mother Relation Name Status Comments Father Mother Social History Tobacco Use Types Packs/Day Years Used Date Smoking Tobacco: Every Day Cigarettes 1 42 Started: 12/21/1982 Smokeless Tobacco: Never Alcohol Use Standard Drinks/Week Comments Yes 0 (1 standard drink = 0.6 oz pur e alcohol) HX ALCOHOLISM, STOPPED 08/30 Comments No Sex and Gender Information Value Date Recorded Sex Assigned at Not on file Legal Sex Female 12:25 AM CDT Gender Identity Not on file Sexual Orientation Not on file Last Filed Vital Signs Vital Sign Reading Time Taken Comments Blood Pressure 139/82 01/26/2018 12:28 PM CDT Pulse 84 01/26/2018 12:28 PM CDT Temperature 36.5 C (97.7 F) 01/26/2018 12:28 PM CDT Respiratory Rate 16 01/26/2018 12:28 PM CDT Oxygen Saturation 97% 01/26/2018 12:28 PM CDT Inhaled Oxygen Concentration - - Weight 86.2 kg (190 lb) 01/26/2018 12:28 PM CDT Height 162.6 cm (5' 4 ) 01/26/2018 12:28 PM CDT Body Mass Index 32.61 01/26/2018 12:28 PM CDT Plan of Treatment Health Maintenance Due Date Last Done Comments Hepatitis C Virus (HCV) Screening 1962 Colonoscopy 2007 Colorectal Cancer Screening 2007 Cologuard 2012 Immunochemical Fecal Occult Blood 2012 Pneumococcal Immunization (50+ years) (1 of 1 - PCV) 2012 Zoster Immunization (1 of 2) 2012 Influenza Immunization (#1) 05/15/202406/15, 06/23/2019, 12/01/2016, Additional history exists SARS-COV-2 Immunization ( - 2023-25 season) 2024 Respiratory Syncytial Virus (RSV) Immunization (Adult) (1 - 1-dose 75+ series) 2037 DTaP/Tdap/Td Immunization Discontinued 08/31/2014 TdaP Immunization Completed 08/31/2014 Hepatitis B Immunization Aged Out No longer eligible based on patient's age to complete this topic Meningococcal Immunization (ACWY) Aged Out No longer eligible based on patient's age to complete this topic Rotavirus Immunization Aged Out No lo nger eligible based on patient's age to complete this topic Insurance MEDICAID [employer] Care Teams Pre Sales Technical Engineer Relationship Specialty Start Date End Date Provider, None [place] PCP - General 01/18/18
--- OUTSIDE RECORDS SUMMARY | 2024-12-13 12:22 | XMS_ITS | Referral Summary ---
Author Organization [facility] [address] Address [address] [place] [address] Phone Care Team Providers Care Gyn Name Role Phone Ty Merino MD Primary Care Provider [phone] Allergies Active Allergy Reactions Criticality Noted Date Comments Acetaminophen Hives Medium 04/05/2011 Hives Codeine Hives Medium 04/05/2011 Hives Medications CALCIUM ORAL Take by mouth daily Active MULTIVITAMIN ORAL Take by mouth daily Active albuterol HFA (PROVENTIL HFA,VENTOLIN HFA,PROAIR HFA) 90 mcg/actuation inhaler INHALE 2 PUFFS BY MOUTH EVERY FOUR TO SIX HOURS NEEDED FOR BREATHING 2 Active Calcium with Vitamin D 600 mg-10 mcg (400 unit) per tablet TAKE TABLET BY MOUTH TWO TIMES A DAY 2 Active cetirizine (ZyrTEC) 10 mg tablet Take 1 tablet (10 mg total) by mouth as needed [address] (VOLTAREN) 75 mg EC tablet Take 2 tablets (150 mg total) by mouth daily 2 Active lisinopril-hydr oCHLOROthiazide (ZESTORETIC) 10-12.5 mg per tablet Take 1 tablet by mouth every morning 2 Active sertraline (ZOLOFT) 100 mg tablet Take 1.5 tablets (150 mg total) by mouth daily 2 Active temazepam (RESTORIL) 15 mg capsule Take 1 capsule (15 mg total) by mouth nightly 2 Active imipramine (TOFRANIL) 25 mg tablet Take 1 tablet (25 mg total) by mouth 2 (two) times a day 2 Active ibuprofen (ADVIL,MOTRIN) 200 mg tab/cap Take by mouth A ctive OLANZapine (ZyPREXA) 10 mg tablet Take 1 tablet (10 mg total) by mouth nightly 7 Active gabapentin (NEURONTIN) 300 mg capsule TAKE TWO CAPSULES BY MOUTH THREE TIMES A DAY NEEDED Active tiZANidine (ZANAFLEX) 2 mg tabletIndicatio ns:Chronic bilateral low back pain without sciatica Take 1 tablet (2 mg total) by mouth nightly as needed for muscle spasms 30 tablet 4 Active Active Problems Problem Noted Date Diagnosed Date Right shoulder pain 01/01/2024 Alcohol abuse 11/30/2016 Carpal tunnel syndrome of left wrist 11/30/2016 MDD (major depressive disorder) 11/30/2016 Social History Tobacco Use Types Packs/Day Years Used Date Smoking Tobacco: Every Day Cigarettes 1 40 Passive Smoke Exposure: Past Smokeless Tobacco: Never AUDIT-C Answer Date Recorded Q1: How often do you have a drink containing alcohol? Never 06/14/2024 Q2: How many drinks containi ng alcohol do you have on a typical day when you are drinking? Patient does not drink Q3: How often do you have si x or more drinks on one occasion? Never 06/14/2024 Personal Safety Answer Date Recorded Getting School Help Needed Not on file 08/27 Comments No Sex and Gender Information Value Date Recorded Sex Assigned at Not on file Legal Sex Female 9:16 AM CDT Gender Identity Female 10/09/2022 8:19 AM [employer] OPER[employer] Sexual Orientation Not on file Occupation Industry Job Start Date Job End Date disabled Not on file Not on file Not on file Last Filed Vital Signs Vital Sign Reading Time Taken Comments Blood Pressure 118/76 06/14/2024 1:35 PM CDT Pulse 89 06/14/2024 1:35 PM CDT Temperature 36.8 C (98.2 F) 12/22/2022 10:59 AM CDT Respiratory Rate 19 12/22/2022 10:59 AM CDT Oxygen Saturation 98% 06/14/2024 1:35 PM CDT Inhaled Oxygen Concentration - - Weight 94.6 kg (208 lb 9.6 oz) 06/14/2024 1:35 P M CDT Height 162.6 cm (5' 4 ) 06/14/2024 1:35 PM CDT Body Mass Index 35.81 06/14/2024 1:35 PM CDT Plan of Treatment Not on file Insurance [id number] [place] [id number] [facility] Care Teams Gyn Relationship Specialty Start Date End Date Ty Merino MD PCP - General Family Medicine 10/07/23
--- OUTSIDE RECORDS SUMMARY | 2024-12-13 12:22 | XMS_ITS | Clinical Summary ---
Author Organization [facility] Address [address] [place] [address] Care Team Providers Care Water Pollution Control Inspector Name Role Phone Unavailable Primary Care Provider Unavailabl e Social History Tobacco Use Types Packs/Day Years Used Date Smoking Tobacco: Never Assessed Comments Unknown Sex and Gender Information Value Date Recorded Sex Assigned at Not on file Legal Sex Female 8:25 PM CDT Gender Identity Not on file Sexual Orientation Not on file Plan of Treatment Health Maintenance Due Date Last Done Comments Cervical Cancer Screening Pa p Smear (Age 30 to 64) Every 3 Years 1962 Colorectal Cancer Screening Colonoscopy (10 Years) 1962 Annual Physical 1965 Hepatitis C 1980 DTaP, Tdap and Td Vaccines ( 1 - Tdap) 1981 Cervical Cancer Screening Pa p with HPV Testing (Age 30 to 64) Every 5 Years 1992 Cervical Cancer Screening with HPV 1992 Mammogram Screening 2002 Zoster Vaccines (1 of 2) 2012 COVID-19 Vaccine (2023-2 5 season) 2024 Influenza Adult (#1) 2024 RSV Immunization or 60+ Years (1 - 1-dose 75+ series) 2037 Meningococcal B Vaccine Aged Out No l onger eligible based on patient's age to complete this topic Meningococcal Vaccine Aged Out No ghulam hieu eligible based on patient's age to complete this topic Pneumococcal Vaccine: Pediat rics (0 to 5 Years) and At-Risk Patients (6 to 64 Years) Aged Out No longer eligible b ased on patient's age to complete this topic RSV Immunizations Under 20 Months Aged Out No longer eligible based on patient's age to complete this topic Advance Directives Documents on File Type Date Recorded Patient Multi Spindle Operator Expl anation Advance Directives and Living Will 10/21/2016 12:00 AM ADVANCED DIRECTIVES
--- OUTSIDE RECORDS SUMMARY | 2024-12-13 12:22 | XMS_ITS | Clinical Summary ---
Author Organization [facility] [address] Address [address] [place] [address] Phone Care Team Providers Care Manufacturing Quality Technician Name Role Phone Ty Merino MD Primary Care Provider [phone] Allergies Active Allergy Reactions Criticality Noted Date [...] wrist 11/30/2016 MDD (major depressive disorder) 11/30/2016 Surgical History Surgery Date Site/Laterality Comments CARPAL TUNNEL RELEASE 09/14/2018 - 09/13/2019 Bilateral APPENDECTOMY Medical History Medical History Date Comments Anemia ADHD (attention deficit hyperactivity disorder) Depression Anxiety Emphysema of lung (HCC) Hypercholesteremia Hypertension DDD (degenerative disc disease), lumbar Lumbar facet arthropathy Retrolisthesis of lumbar vertebrae, 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 1 09/23/2023 Family History Medical History Relation Name Comments Arthritis Mother Cancer Mother Diabetes Mother Heart disease Mother Stroke Mother Relation Name Status Comments Father Mother [...] CDT Gender Identity Female 10/09/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 Sexual Orientation Not on file Occupation Industry Job Start Date Job End Date disabled Not on file Not on file Not on file Obstetrics History Last Filed Vital Signs Vital Sign Reading [...] 06/14/2024 1:35 PM CDT Plan of Treatment Health Maintenance Due Date Last Done Comments Breast Cancer Screening-Mammogram 1962 Cervical Cancer Screening 1962 Colon Cancer Screening-Colonoscopy 1962 Depression Screening 1962 Hepatitis C Screening 1962 Hepatitis B Screening 1980 Regular Well Visit/Exam 18-64 1980 Pneumococcal vaccine <65 (1 of 2 - PCV) 1981 Lung Cancer Screening 2012 Zoster Vaccine (1 of 2) 2012 Influenza Vaccine (#1) 2024 1, 07/04/2020, 06/23/2019, Additional history exists DTaP/Tdap/Td Vaccine (2 - Td or Tdap) 08/31/2024 08/31/2014 Insurance [facility] Care Teams Manufacturing Quality Technician Relationship Specialty Start Date End Date Ty Merino MD PCP - General Family Medicine 10/07/23
--- OUTSIDE RECORDS SUMMARY | 2024-12-13 12:22 | XMS_ITS | CONTINUITY OF CARE DOCUMENT ---
Author Name tatianaanabelademarcus Address Unknown Organization [facility] Address [address] [place] [address] Phone [phone] Care Team Providers Care Brand Ambassador Promotional Model Name Role Phone French Esquivel MD Unavailable SHAWN CONNER MD, NESSA Unavailable DARIN CURRY CNP Unavailable [phone] INSURANCE PROVIDERS Payer name Policy type / Coverage type Travis red green party [place] ELSY MEDICAID (2) Medicaid [id number]
[2024-12-13 12:36] VITALS: BP 179/79; PULSE 111; RESP 20; O2SAT 96
--- OUTSIDE RECORDS SUMMARY | 2024-12-13 13:21 | XMS_ITS | Clinical Summary ---
Author Organization [facility] Address [address] [place] [address] Care Team Providers Care Passenger Representative Name Role Phone Unavailable Primary Care Provider [...] Documents on File Type Date Recorded Patient Vector Control Assistant Expl anation Advance Directives and Living Will 10/21/2016 12:00 AM ADVANCED DIRECTIVES
--- OUTSIDE RECORDS SUMMARY | 2024-12-13 13:21 | XMS_ITS | Clinical Summary ---
Author Organization [facility] Address [address] [place] [address] Phone Care Team Providers Care Tack Puller Name Role Phone Provider, None Primary Care [...] 20 mg by mouth daily. Active Multiple Vitamins-Heel Coverer Machine Operator als (MULTIVITAMIN PO) Take by mouth daily. [...] Insurance MEDICAID [facility] [employer] Care Teams Tack Puller Relationship Specialty Start Date End Date Provider, None [place] PCP - General 01/18/18
--- OUTSIDE RECORDS SUMMARY | 2024-12-13 13:21 | XMS_ITS | CONTINUITY OF CARE DOCUMENT ---
Author Name tatianaanabelademarcus Address Unknown Organization [facility] Address [address] [place] [address] Phone [phone] Care Team Providers Care Health Care Coordinator Name Role Phone French Esquivel MD Unavailable SHAWN CONNER MD, NESSA Unavailable DARIN CURRY CNP Unavailable [phone] INSURANCE PROVIDERS Payer name Policy type / Coverage type Travis red democrat ID ELSY MEDICAID (2) Medicaid [id number]
--- OUTSIDE RECORDS SUMMARY | 2024-12-13 13:21 | XMS_ITS | Clinical Summary ---
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 Care Teams Shredder/Granulator Operator Relationship Specialty Start Date End Date Ty Merino MD PCP - General Family Medicine 10/07/23
--- OUTSIDE RECORDS SUMMARY | 2024-12-13 13:21 | XMS_ITS | Referral Summary ---
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
--- OUTSIDE RECORDS SUMMARY | 2024-12-13 13:21 | XMS_ITS | Clinical Summary ---
Author Organization [facility] Address [address] [place] [address] Care Team Providers Care Middleware Consultant Name Role Phone Swapna Cortez PA-C Primary Care Provider + Source Comments [facility],non-owned Affiliates and Associated Physician Practices is amultiple site organization consisting of ambulatory clinics and hospital sitesin [place], [place], [place] and [place]. This disclosure is being madepursuant to the Care Everywhere program and may not contain all information available regarding this patient. Last updated 18.[facility] Allergies No known active allergies Medications * [...] 217(H) <200 mg/dL 12/03/2016 6:03 AM T [facility] Triglycerides 180(H) <150 mg/dL 12/03/2016 6:03 AM T [facility] HDL Cholesterol 20(L) >40 mg/dL 7 6:03 AM T [facility] Chol HDL Ratio 10.9(H) 1.0 - 6.0 12/03/2016 6:03 AM T [facility] LDL Calculated 161(H) 65 - 130 mg/dL 12/03/2016 6:03 AM T [facility] VLDL Calculated 36 10 - 40 mg/dL 12/03/2016 6:03 AM T [facility] Blood BLOOD SPECIMEN / Unknown Lab Venipuncture / Unknown 12/03/2016 5:27 AM CDT 12/03/2016 5:38 AM CDT Narrative [facility] - 12/03/2016 6:03 AM CDT [...] Potter MD LAB - CHEMISTRY [facility] Organization Address City/State/ZIP Co de Phone Number [facility] [address] [place] [address], [facility] from Last 3 Months or Most Recently Relevant to Health Maintenance Advance Directives * Full Code (Latest Code Status on File) Date Activated Date Inactivated Comments 11/30/2016 3:26 PM 12/04/2016 2:06 PM Care Teams Middleware Consultant Relationship Specialty Start Date End Date Swapna Cortez PA-C [facility] [place] [address] PCP - General 08/22/21
[2024-12-13] MEDS: AZITHROMYCIN 250 MG TABLET 500 MG PO (13:55)
[2024-12-13] MEDS: AMOXICILLIN/CLAVULANATE K 875-125 MG TAB 1 TABLET PO (13:55)
--- NOTE | 2024-12-13 14:25 | ECG_ITS ---
Test Date: 2024-12-13 14:29:43 Measurements Intervals [place] Rate: 89 P: 46 WY: 116 QRS: 52 QRSD: 90 T: 66 QT: 318 QTc: 387 Interpretive Statements SINUS RHYTHM NONSPECIFIC T-WAVE ABNORMALITY- ANT/HIGH LAT LEADS BASELINE ARTIFACT- AVR, V1 BORDERLINE ECG Compared to ECG 12/13/2024 11:15:29 HEART RATE HAS DECREASED Electronically Signed On 12-13-2024 14:43:50 CDT by Mayo Brice D.O.
[2024-12-13 15:07] LABS: Troponin I < 0.012 ng/mL (0.000-0.034)
[2024-12-13 15:58] VITALS: BP 128/72; PULSE 89; RESP 18; O2SAT 96
== END 2024-12-13 16:00 | disposition home or self-care (01) ==
PROVIDERS: Emergency Provider Emergency Medicine; PCP Family Medicine
DX: J18.9 Pneumonia, unspecified organism (principal); R07.89 Other chest pain; F17.210 Nicotine dependence, cigarettes, uncomplicated
CPT/HCPCS: 36415; 71046; 71275; 80053; 83690; 84484; 85025; 85610; 85730; 93005; 96374; 96375; 99284; A9270; J1885; J2270; Q9967

== ENCOUNTER 2025-04-01 22:10 | Emergency (ER) | payer OTHER, SELFPAY ==
--- OUTSIDE RECORDS SUMMARY | 2025-04-01 22:12 | XMS_ITS | Clinical Summary ---
Author Organization CC 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
--- OUTSIDE RECORDS SUMMARY | 2025-04-01 22:12 | XMS_ITS | Referral Summary ---
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
--- OUTSIDE RECORDS SUMMARY | 2025-04-01 22:12 | XMS_ITS | Clinical Summary ---
Author Organization [facility] [employer] Address [address] [place] [address] Care Team Providers Care Tie Sawyer Name Role Phone Swapna Cortez PA-C Primary Care Provider + Source Comments [facility] [employer],non-owned Affiliates and Associated Physician Practices is amultiple site organization consisting of ambulatory clinics and hospital sitesin [place], [place], [place] and [place]. This disclosure is being madepursuant to the Care Everywhere program and may not contain all information available regarding this patient. Last updated 18.[facility] [employer] Allergies No known active allergies Medications * This document contains information received from the source organization and may not represent a complete record from that organization. * Be aware that medications may not be up to date on this document. Alwaysverify current medications with the patient. hydrOXYzine hcl (ATARAX) 50 MG tabletIndicatio ns:Anxiety Take 1 Tab by mouth 2 times daily as needed Reasons: Feeling Anxious 14 Tab 7 Active gabapentin (NEURONTIN) 400 MG capsuleIndicati ons:Alcohol Withdrawal Syndrome Take 1 Cap by mouth 3 times daily Reasons: Alcohol Withdrawal Syndrome 90 Cap 7 Active FLUoxetine (PROZAC) 20 MG capsuleIndicati ons:Major Depressive Disorder Take 1 Cap by mouth once daily Reasons: Major Depressive Disorder 30 Cap 7 Active OLANZapine (ZYPREXA) 10 MG tabletIndicatio ns:Major Depressive Disorder Take 1 Tab by mouth at bedtime Reasons: Major Depressive Disorder 30 Tab 7 Active potassium chloride (KLOR-CON M) 20 MEQ tabletIndicatio ns:Hypokalemia Take 1 Tab by mouth daily with breakfast Reasons: Low Amount of Potassium in the Blood 30 Tab 7 Active nicotine (NICODERM CQ) 14 MG/24HR patchIndication s:Nicotine Dependence Apply 1 Patch to skin once daily Remove old patch before applying new patch. Reasons: Nicotine Addiction 14 Patch 7 Active Active Problems Problem Noted Date Diagnosed Date MDD (major depressive disorder) 11/30/2016 Alcohol abuse 11/30/2016 Carpal tunnel syndrome 11/30/2016 Immunizations Immunization Administration Dates Next Due INFLUENZA VACCINE, QUADR. (F LUZONE; FLULAVAL; FLUARIX; AFLURIA QUADRIVALENT; 6MO+), 0.5 ML (IIV4) 12/01/2016 Social History Tobacco Use Types Packs/Day Years Used Date Smoking Tobacco: Every Day Cigarettes Tobacco Cessation:Ready to Q uit: No; Counseling Given: Yes Comments Unknown Sex and Gender Information Value Date Recorded Sex Assigned at Not on file Legal Sex Female 5:01 AM MECHANIST Gender Identity Not on file Sexual Orientation [...] 3:22 PM CDT Height 157.5 cm (5' 2) 11/30/2016 3:22 PM CDT Body Mass Index [...] - COLON CA SCREENING 1962 MAMMOGRAM 1962 HIV SCREENING 1977 HEPATITIS C SCREENING 11/04/1980 DTAP/TDAP/TD VACCINES (1 - Tdap) 1981 PNEUMOCOCCAL VACCINE 50+ (1 of 2 - PCV) 1981 ZOSTER VACCINE (1 of 2) 2012 LIPID TESTING 12/03/2021 12/03/2016 COVID-19 VACCINE (1 - 2023-2 5 season) 2024 DEPRESSION SCREENING 09/14/2024 INFLUENZA VACCINE (#1) 2025 12/01/2016 Respiratory Syncytial Virus (RSV) Vaccine Pt: or [...] 217(H) <200 mg/dL 12/03/2016 6:03 AM T [facility] Triglycerides 180(H) <150 mg/dL 12/03/2016 6:03 AM CDT [facility] HDL Cholesterol 20(L) >40 mg/dL 7 6:03 AM CDT [facility] Chol HDL Ratio 10.9(H) 1.0 - 6.0 12/03/2016 6:03 AM T [facility] LDL Calculated 161(H) 65 - 130 mg/dL 12/03/2016 6:03 AM T [facility] VLDL Calculated 36 10 - 40 mg/dL 12/03/2016 6:03 AM T [facility] Blood BLOOD SPECIMEN / Unknown Lab Venipuncture / Unknown 12/03/2016 5:27 AM CDT 12/03/2016 5:38 AM CDT Narrative [facility] - 12/03/2016 6:03 AM CDT Lipid [...] 2X AVERAGE.................. 9.5 ...................... 7.0 3X AVERAGE...................>23........................>11 us Debbie Potter MD LAB - CHEMISTRY ORDERABLES Mary l Result [facility] [address] [place] [address], [facility] from Last 3 Months or Most Recently Relevant to Health Maintenance Insurance [facility] Advance Directives * Full Code (Latest Code Status on File) Date Activated Date Inactivated Comments 11/30/2016 3:26 PM 12/04/2016 2:06 PM Care Teams Tie Sawyer Relationship Specialty Start Date End Date Swapna Cortez PA-C [address] [place] [phone] PCP - General 08/22/21
--- OUTSIDE RECORDS SUMMARY | 2025-04-01 22:12 | XMS_ITS | Clinical Summary ---
Author Organization [facility] Address [address] [place] [address] Phone Care Team Providers Care Drive Shaft And Steering Post Repairer Name Role Phone Provider, None Primary Care [...] Ibuprofen 200 MG Capsule Take by mouth. Act ced Melatonin 10 MG Tablet Take 10 mg [...] 20 mg by mouth daily. Active Multiple Vitamins-It Software Engineer als (MULTIVITAMIN PO) Take by mouth daily. [...] Date Smoking Tobacco: Every Day Cigarettes 1 42.3 Started: 12/21/1982 Smokeless Tobacco: Never Alcohol Use [...] 12:28 PM CDT Height 162.6 cm (5' 4) 01/26/2018 12:28 PM CDT Body Mass Index 32.61 01/26/2018 12:28 PM CDT Plan of Treatment Health Maintenance Due Date Last Done Comments Hepatitis C Virus (HCV) Screening 1962 Pap Smear 1983 Cervical Cancer Screening (CCS) 1992 HPV/Cotest 1992 Cologuard 2007 Colonoscopy 2007 Colorectal Cancer Screening 2007 Immunochemical Fecal Occult Blood 2007 Pneumococcal Immunization (50+ years) (1 of 1 - PCV) 2012 Zoster Immunization (1 of 2) 2012 SARS-COV-2 Immunization (1 - 2023- season) 2024 Influenza Immunization (#1) 05/15/202506/15, 06/23/2019, 12/01/2016, Additional history exists Respiratory Syncytial Virus (RSV) Immunization (Adult) (1 - 1-dose 75+ series) 2037 DTaP/Tdap/Td Immunization Discontinued 08/31/2014 TdaP Immunization Completed 08/31/2014 Hepatitis B Immunization Aged Out No longer eligible based on patient's age to complete this topic Human Papillomavirus (HPV) Immunization Aged Out No longer eligible based on patient's age to complete this topic Meningococcal Immunization (ACWY) Aged Out No longer eligible based on patient's age to complete this topic Rotavirus Immunization Aged Out No lo nger eligible based on patient's age to complete this topic Insurance MEDICAID [employer] Care Teams Drive Shaft And Steering Post Repairer Relationship Specialty Start Date End Date Provider, None [place] PCP - General 01/18/18
--- OUTSIDE RECORDS SUMMARY | 2025-04-01 22:12 | XMS_ITS | Clinical Summary ---
Author Organization [facility] Address Pending sale to [facility] [place] [address] Care Team Providers Care Prepress Technician Name Role Phone Unavailable Primary Care Provider [...] Screening with HPV 1992 Mammogram Screening 2002 Pneumococcal Vaccine: 50+ Ye ars (1 of 1 - PCV) 2012 Zoster Vaccines (1 of 2) 2012 COVID-19 Vaccine (2023-2 5 season) 2024 RSV Immunization or 60+ Years (1 [...] Documents on File Type Date Recorded Patient Administrative Resident Expl anation Advance Directives and Living Will 10/21/2016 12:00 AM ADVANCED DIRECTIVES
[2025-04-01 22:20] VITALS: BP 113/78; PULSE 88; RESP 18; TEMP 37.1; O2SAT 97
--- NOTE | 2025-04-01 23:25 | ED_ITS ---
HPI - Skin/Abscess/Foreign Bdy General Chief complaint: Skin/Abscess/Foreign Body Stated complaint: abscess on roof of mouth- 5.5 years- swollen Time Seen by Provider: 04/01/25 23:03 Source: patient and RN notes reviewed Mode of arrival: ambulatory Limitations: no limitations History of Present Illness HPI narrative: 64 y/o female in the ED for c/o an abscess to the hard palate. 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 Pt noted swelling recently, started on Augmentin. Pt being referred to ENT, awaiting appt date. Pt states it is difficult to swllow d/t pain. Pt states she can swallow food, spit, breath, and speak but the issue is very painful to deal with. Pt does endorse HUSAIN in addition to pain. Pt takin no OTC analgesics for pain, has used magic mouthwash in the past with relief. Pt denies fevers, chills, CP, SOB, dizziness. Related Data Home Medications ?Medication ?Instructions ?Recorded ?Confirmed ?Last Taken ?Type albuterol sulfate 90 mcg/actuation 1 inh inhalation PRN PRN Shortness 08/16/21 05/25/23 Unknown History aerosol inhaler Of Breath apple cider vinegar 300 mg tablet 300 mg PO DAILY 08/16/21 05/25/23 Unknown History calcium 600 mg (as 1 tablet PO DAILY 08/16/21 05/25/23 Unknown History carbonate)-vitamin D3 10 mcg (400 unit) tablet diclofenac sodium 75 mg 75 mg PO BID 08/16/21 05/25/23 Unknown History tablet,delayed release gabapentin 300 mg tablet 300 mg PO TID 08/16/21 05/25/23 Unknown History imipramine HCl 25 mg tablet 25 mg PO BID 08/16/21 05/25/23 Unknown History multivitamin with folic acid 400 1 tablet PO DAILY 08/16/21 05/25/23 Unknown History mcg tablet (Tab-A-Awais) sertraline 100 mg tablet 100 mg PO DAILY 08/16/21 05/25/23 Unknown History lisinopril 10 mg tablet 10 mg PO DAILY 02/23/23 05/25/23 Unknown History Allergies Allergy/AdvReac Type Severity Reaction Status Date / Time No Known Allergies Allergy Verified 12/13/24 11:04 Review of Systems Review of Systems: CONSTITUTIONAL: Denies fever, chills, or sweats. EYES: Denies visual changes, redness, or discharge. ENT: Denies rhinorrhea, congestion, sore throat, or otalgia. Endorses pain to roof of the mouth. CARDIOVASCULAR: Denies chest pain, palpitations, or edema. RESPIRATORY: Denies cough or dyspnea. GASTROINTESTINAL: Denies abdominal pain, nausea, vomiting, or diarrhea. GENITOURINARY: Denies dysuria or hematuria. SKIN: Denies rash or itching. MUSCULOSKELETAL: Denies back pain, joint pain, or myalgia. NEUROLOGIC: Denies headache, numbness, or weakness. PSYCHIATRIC: Denies anxiety or depression. [facility] Past Medical History Medical History WHITING (nonalcoholic steatohepatitis) 3 years ago - resolved Family History Family History Father Alcoholism Mother Cancer Diabetes mellitus Hypertension Depression Heart disease Cerebrovascular accident Social History Social History Social History: Caffeine-daily Smoking packs per day: 1 Smoking cigarettes per day: 20.0 Years smoked: 40 Smoking pack-years: 40.00 Smoking status: Current every day smoker Alcohol intake: never Substance use: never Substance use type: does not use Lack of Transportation: No Lack of Food: Never True Current Housing: I Have Housing Concerned About Future Housing: No Difficulty Paying Gas/Electric Bills: YES Difficulty Paying for Meds: No Currently Unemployed: No Education: High School Diploma/GED Difficulty w/ Childcare or Family Care: No Exam Const: General: healthy appearing, no acute distress and alert Nutritional Appearance: well nourished Orientation/consciousness: patient oriented x3 Limitations: no limitations HENMT: Head: normal to inspection Ears: external ears normal Face/Nose/Sinus: Normal external nose present Face and sinus: normal facial exam Mouth: Yes Abnormal oral and palatal mucosa present ulceration (Appears to be a partially ruptured abscess to the hard palate) of the hard palate Teeth and gingiva: dentition normal Throat: posterior oropharynx normal and uvula midline Eyes: Pupils: Equal, round and reactive pupils present EOM: EOMs intact bilaterally Neck: Neck: normal visual inspection and no lymphadenopathy Chest: Chest palpation & inspection: normal inspection of the chest Resp: Effort & Inspection: normal respiratory effort Auscultation: clear to auscultation bilaterally Cardio: Rate: regular rate Rhythm: regular rhythm GI: GI Palp: Yes Soft to palpation Auscultation: normal bowel sounds Skin: General skin exam: normal color Rashes: no rashes Wounds: no wounds Neuro: General: patient oriented x3 and moves all extremities Speech: normal speech Gait exam (Neuro): Normal gait present Extrem: General: normal to inspection Psych: Mental Status: mental status grossly normal Affect: normal affect Attitude: cooperative Course Vital Signs Vital signs: Vital Signs Temperature 37.1 C 04/01/25 22:20 Pulse Rate 88 04/01/25 22:20 Respiratory Rate 18 04/01/25 22:20 Blood Pressure 113/78 04/01/25 22:20 Pulse Oximetry 97 04/01/25 22:20 Temperature 37.1 C 04/01/25 22:20 Pulse Rate 88 04/01/25 22:20 Respiratory Rate 18 04/01/25 22:20 Blood Pressure 113/78 04/01/25 22:20 Pulse Oximetry 97 04/01/25 22:20 MDM - Skin/Abscess/Foreign Bdy MDM Narrative Medical decision making narrative: Discussed ordering of CT sinuses to evaluate abscess depth. Patient just requesting a change of antibiotics at this time and would like to follow-up with her primary care provider on Thursday. Patient denies pain at this time and feels it was mostly due to the size of the pill that she took and a reaction to the antibiotics. Patient had no signs and symptoms of anaphylaxis. Antibiotics to be changed to clindamycin and patient will follow-up on Thursday Differential Diagnosis Differential diagnosis: Likely abscess of skin or subcutaneous tissue and cellulitis Discharge Plan Discharge Clinical Impression: Abscess of skin or subcutaneous tissue Qualifiers: Site of cutaneous abscess: mouth Qualified Code(s): K12.2 - Cellulitis and abscess of mouth Patient Disposition: Home Condition: Stable Instructions: Antibiotic Form, Abscess (ED) Additional Instructions: Throw a previous antibiotic. New antibiotic called in to your pharmacy of choice take until completed. Also prescribed Magic mouthwash for pain. You may take [id number] Motrin or Tylenol as well for additional pain control. Patient Language: Albanian Prescriptions: New clindamycin HCl [Cleocin HCl] 300 mg capsule 300 mg PO Q6H Qty: 20 0RF Magic Mouthwash (Dr. Castro) 120 mL suspension 10 ml PO 4-6XD Qty: 120 0RF Rx Instructions: diphenhydramine 12.5 mg/5 mL oral elixir 40 mL; Lidocaine Viscous 2 % mucosal solution 40 mL; Maalox 200 mg-200 mg-20 mg/5 mL oral suspension 40 mL; Per 120 mL No Action lisinopril 10 mg tablet 10 mg PO DAILY triamcinolone acetonide 0.1 % paste 1 applic dental BID Qty: 5 2RF Rx Instructions: use after food and/or drink and/or oral hygiene triamcinolone acetonide 0.1 % paste 1 applic dental BID Qty: 5 3RF Rx Instructions: use after food and/or drink and/or oral hygiene sertraline 100 mg Tablet 100 mg PO DAILY diclofenac sodium 75 mg Tablet,Delayed Release (Dr/Ec) 75 mg PO BID albuterol sulfate 90 mcg/actuation HFA aerosol inhaler 1 inh INHALATION PRN PRN (Reason: Shortness Of Breath) imipramine HCl 25 mg Tablet 25 mg PO BID gabapentin 300 mg Tablet 300 mg PO TID calcium carbonate-vitamin D3 600 mg-10 mcg (400 unit) tablet 1 tablet PO DAILY apple cider vinegar 300 mg Tablet 300 mg PO DAILY multivitamin with folic acid [Tab-A-Awais] 400 mcg Tablet 1 tablet PO DAILY azithromycin 250 mg tablet See Rx Instructions .ROUTE .COMPLEX Qty: 6 0RF Rx Instructions: For 250 mg dose pack: take 500 mg today (day 1), then 250 mg for 4 days (days 2-5) albuterol sulfate 90 mcg/actuation HFA aerosol inhaler 1 puff inhalation QID Qty: 6.7 0RF amoxicillin-pot clavulanate 875-125 mg tablet 1 tablet PO Q12H 7 Days Qty: 14 0RF methylprednisolone [Medrol] 4 mg tablet 4 mg PO BID Qty: 20 2RF Follow-up/Referrals: Wilber,Ty Roman MD [Primary Care Provider] - 2 Days
--- OUTSIDE RECORDS SUMMARY | 2025-04-01 23:25 | XMS_ITS | Clinical Summary ---
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
--- OUTSIDE RECORDS SUMMARY | 2025-04-01 23:25 | XMS_ITS | Referral Summary ---
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
--- OUTSIDE RECORDS SUMMARY | 2025-04-01 23:25 | XMS_ITS | Clinical Summary ---
Author Organization [facility] Address [address] [place] [address] Phone Care Team Providers Care Steel Rule Inspector Name Role Phone Provider, None Primary Care [...] 20 mg by mouth daily. Active Multiple Vitamins-Loan Servicing Officer als (MULTIVITAMIN PO) Take by mouth daily. [...] Insurance MEDICAID [employer] Care Teams Steel Rule Inspector Relationship Specialty Start Date End Date Provider, None [place] PCP - General 01/18/18
--- OUTSIDE RECORDS SUMMARY | 2025-04-01 23:25 | XMS_ITS | Clinical Summary ---
Author Organization [facility] Address [facility] [place] [address] Care Team Providers Care Data Typist Name Role Phone Unavailable Primary Care Provider [...] Documents on File Type Date Recorded Patient Owner Manager Expl anation Advance Directives and Living Will 10/21/2016 12:00 AM ADVANCED DIRECTIVES
--- OUTSIDE RECORDS SUMMARY | 2025-04-01 23:25 | XMS_ITS | Clinical Summary ---
Author Organization [facility] Address [address] [place] [address] Care Team Providers Care Video Surveillance Technician Name Role Phone Swapna Cortez PA-C Primary Care Provider + Source Comments [facility],non-owned Affiliates and Associated Physician Practices is amultiple site organization consisting of ambulatory clinics and hospital sitesin [place], [place], [place] and [place]. This disclosure is being madepursuant to the Care Everywhere program and may not contain all information available regarding this patient. 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 Gender Identity Not on file Sexual Orientation [...] 217(H) <200 mg/dL 12/03/2016 6:03 AM T [facility] Triglycerides 180(H) <150 mg/dL 12/03/2016 6:03 AM CDT [facility] HDL Cholesterol 20(L) >40 mg/dL 7 6:03 AM CDT [facility] Chol HDL Ratio 10.9(H) 1.0 - 6.0 12/03/2016 6:03 AM T [facility] LDL Calculated 161(H) 65 - 130 mg/dL 12/03/2016 6:03 AM T [facility] VLDL Calculated 36 10 - 40 mg/dL 12/03/2016 6:03 AM T [facility] Blood BLOOD SPECIMEN / Unknown Lab Venipuncture / Unknown 12/03/2016 5:27 AM CDT 12/03/2016 5:38 AM CDT Narrative [facility] - 12/03/2016 6:03 AM CDT [...] LAB - CHEMISTRY ORDERABLES Mary l Result [facility] [address] [place] [address], [facility] from Last 3 Months or Most Recently Relevant to Health Maintenance Insurance [facility] Advance Directives * Full Code (Latest Code Status on File) Date Activated Date Inactivated Comments 11/30/2016 3:26 PM 12/04/2016 2:06 PM Care Teams Video Surveillance Technician Relationship Specialty Start Date End Date Swapna Cortez PA-C [address] [place] [id number] PCP - General 08/22/21
== END 2025-04-02 01:18 | disposition home or self-care (01) ==
PROVIDERS: Emergency Provider Registered Nurse Emergency; PCP Family Medicine
DX: M27.2 Inflammatory conditions of jaws (principal); F17.210 Nicotine dependence, cigarettes, uncomplicated
CPT/HCPCS: 99283; A9270